=== PATIENT | male | born 1935 | race Caucasian/White ===

== ENCOUNTER 2017-07-15 04:14 | Inpatient (IN) | payer MEDICARE, OTHER ==
[~2017-07-15] VITALS: Ht 172.7 cm; Wt 106.7 kg
[2017-07-15] MEDS ORDERED: ASPIRIN 325 MG TABLET ONE (04:35)
[2017-07-15] MEDS ORDERED: FUROSEMIDE 10 MG/ML 4ML VIAL ONE (04:35)
[2017-07-15] MEDS ORDERED: METHYLPREDNISOLONE SOD SUCC 125MG/2ML VIAL ONE (04:36)
[2017-07-15 04:37] LABS: BASOPHILS % (AUTO) 0.4 % (0.0-5.0); EOSINOPHILS % (AUTO) 1.5 % (0.0-8.0); HEMATOCRIT 31.7 % (42-54); LYMPHOCYTES % (AUTO) 12.3 % (21.0-51.0); MEAN CORPUSCULAR HGB CONC 33.4 g/dL (32.0-36.0); MEAN CORPUSCULAR VOLUME 90.1 fL (79-99); MONOCYTES % (AUTO) 8.7 % (3.0-13.0); NEUTROPHILS % (AUTO) 77.1 % (40.0-77.0); PLATELET COUNT (AUTO) 156 K/uL (130-400); RED BLOOD CELL COUNT(AUTO) 3.52 MIL/uL (4.50-6.20); RED CELL DISTRIBUTION WIDTH 14.5 % (11.0-15.5); WHITE BLOOD COUNT (AUTO) 8.6 K/uL (4.8-10.8)
[2017-07-15] MEDS ORDERED: IPRATROPIUM/ALBUTEROL SULFATE 3 ML SOLUTION IH ONE (04:39)
[2017-07-15 04:42] LABS: INR 1.14 (0.85-1.15); PROTHROMBIN TIME 11.9 SEC (9.6-11.6)
[2017-07-15 05:32] LABS: APPEARANCE,URINE Clear (CLEAR); BILIRUBIN,URINE Negative (NEGATIVE); COLOR,URINE Yellow (YELLOW); GLUCOSE, URINE (UA) Negative (NEGATIVE); KETONES,URINE Negative (NEGATIVE); LEUKOCYTE ESTERASE ,URINE Negative (NEGATIVE); NITRATE,URINE Negative (NEGATIVE); OCCULT BLOOD,URINE Negative (NEGATIVE); PH,URINE 5.5 (5.0-8.0); PROTEIN,URINE Negative (NEGATIVE); UROBILINOGEN,URINE 0.2 mg/dL (0.2-1.0)
[2017-07-15] MEDS ORDERED: POTASSIUM CHLORIDE 20MEQ/100ML 100 ML IV PRN (07:00)
[2017-07-15] MEDS ORDERED: POTASSIUM CHLORIDE 20 MEQ ERTAB PO PRN (07:00)
[2017-07-15] MEDS ORDERED: NITROGLYCERIN 0.4 MG SL TAB SL PRN (07:00)
[2017-07-15] MEDS ORDERED: HYDRALAZINE HCL 20 MG/ML VIAL IV PRN (07:00)
[2017-07-15] MEDS ORDERED: LEVOFLOXACIN 500 MG/D5W 100 ML 100 ML IV SCH ×2 (07:00→09:00)
[2017-07-15] MEDS ORDERED: LIDOCAINE HCL-MPF 1% 2ML VIAL IVP PRN (07:00)
[2017-07-15] MEDS ORDERED: ONDANSETRON HCL 4 MG/2 ML VIAL IV PRN (07:00)
[2017-07-15] MEDS ORDERED: ACETAMINOPHEN 325 MG TAB PO PRN ×2 (07:00)
[2017-07-15] MEDS ORDERED: HYDR-4154 PO (07:40)
[2017-07-15] MEDS ORDERED: TERA5CAP4 PO (07:40)
[2017-07-15] MEDS ORDERED: METO50TA18 PO (07:40)
[2017-07-15] MEDS ORDERED: FENO48TA4 PO (07:40)
[2017-07-15] MEDS ORDERED: SERT25TA5 PO (07:40)
[2017-07-15] MEDS ORDERED: FAMO20TA8 PO (07:40)
[2017-07-15] MEDS ORDERED: LEVE500T8 PO (07:40)
[2017-07-15] MEDS ORDERED: TORS5TAB12 PO (07:40)
[2017-07-15] MEDS ORDERED: MINO2.5T3 PO (07:40)
[2017-07-15] MEDS ORDERED: ATOR10 PO (07:40)
[2017-07-15] MEDS ORDERED: LOSA50TA37 PO (07:40)
[2017-07-15 07:42] VITALS: BP 160/82
[2017-07-15 08:04] LABS: ALBUMIN 3.3 g/dL (3.5-5.0); BILIRUBIN,TOTAL 0.3 mg/dL (0.2-1.0); CREATININE 1.3 mg/dL (0.5-1.5); POTASSIUM 3.5 mmol/L (3.5-5.1); TOTAL PROTEIN, SERUM 6.9 g/dL (6.0-8.3)
[2017-07-15] MEDS ORDERED: HYDRALAZINE HCL 20 MG/ML VIAL ONE (08:04)
[2017-07-15 09:00] VITALS: BP 159/90
[2017-07-15] MEDS ORDERED: FUROSEMIDE 10 MG/ML 2ML VIAL IV SCH (09:00)
[2017-07-15] MEDS ORDERED: IOPAMIDOL-370 75 ML VIAL IV ONE (09:05)
[2017-07-15] MEDS ORDERED: IOPAMIDOL-370 100 ML VIAL IV ONE (09:07)
[2017-07-15] MEDS: FAMOTIDINE 20MG TAB 20 MG TAB PO SCH ×2 (10:30→21:29)
[2017-07-15] MEDS: ENOXAPARIN SODIUM 40 MG/0.4 ML SYRINGE SQ SCH (10:31)
[2017-07-15] MEDS: IPRATROPIUM/ALBUTEROL SULFATE 3 ML SOLUTION IH SCH ×3 (10:32→23:41)
[2017-07-15 11:00] VITALS: BP 157/81
[2017-07-15 11:13] LABS: CREATINE KINASE MB 0.6 ng/mL (0.5-3.6); CREATINE KINASE, TOTAL 69 U/L (21-232); MYOGLOBIN 61 ng/mL (10-92); TROPONIN I < 0.04 ng/mL (0.00-0.06)
[2017-07-15] MEDS: POTASSIUM CHLORIDE 10% ELIXIR 20 MEQ/15 ML UDCUP PO PRN (12:33)
[2017-07-15] MEDS: HYDRALAZINE HCL 25 MG TABLET PO SCH ×2 (15:11→21:30)
[2017-07-15] MEDS ORDERED: LOSARTAN 50 MG TABLET PO SCH (15:15)
[2017-07-15 16:00] VITALS: BP 182/82
[2017-07-15] MEDS: MINOXIDIL 2.5 MG TAB PO SCH (17:10)
[2017-07-15] MEDS: LEVETIRACETAM 500 MG TABLET PO SCH (17:10)
[2017-07-15 17:11] LABS: CREATINE KINASE MB 1.1 ng/mL (0.5-3.6); CREATINE KINASE, TOTAL 58 U/L (21-232); MYOGLOBIN 50 ng/mL (10-92); TROPONIN I < 0.04 ng/mL (0.00-0.06)
[2017-07-15] MEDS: FUROSEMIDE 10 MG/ML 2ML VIAL IV SCH ×2 (17:14→21:00)
[2017-07-15 19:33] VITALS: BP 137/86
[2017-07-15] MEDS: ATORVASTATIN CALCIUM 20 MG TABLET PO SCH (21:29)
[2017-07-15] MEDS: SERTRALINE HCL 50 MG TABLET PO SCH (21:29)
[2017-07-15] MEDS: METOPROLOL TARTRATE 50 MG TAB PO SCH (21:30)
[2017-07-15 23:50] VITALS: BP 142/72
[2017-07-16] VITALS (8 sets, daily range): BP systolic 105–183; BP diastolic 53–80
[2017-07-16 03:50] LABS: HEMATOCRIT 32.7 % (42-54); MEAN CORPUSCULAR HEMOGLOBIN 29.4 pg (27.0-33.0); MEAN CORPUSCULAR HGB CONC 32.7 g/dL (32.0-36.0); MEAN CORPUSCULAR VOLUME 89.9 fL (79-99); PLATELET COUNT (AUTO) 170 K/uL (130-400); RED BLOOD CELL COUNT(AUTO) 3.64 MIL/uL (4.50-6.20); WHITE BLOOD COUNT (AUTO) 9.9 K/uL (4.8-10.8)
[2017-07-16 04:02] LABS: CREATININE 1.4 mg/dL (0.5-1.5); POTASSIUM 3.6 mmol/L (3.5-5.1)
[2017-07-16] MEDS: POTASSIUM CHLORIDE 10% ELIXIR 20 MEQ/15 ML UDCUP PO PRN (06:52)
[2017-07-16] MEDS: IPRATROPIUM/ALBUTEROL SULFATE 3 ML SOLUTION IH SCH ×4 (07:05→23:57)
[2017-07-16] MEDS: LEVETIRACETAM 500 MG TABLET PO SCH ×2 (08:06→16:44)
[2017-07-16] MEDS: FAMOTIDINE 20MG TAB 20 MG TAB PO SCH ×2 (08:06→20:59)
[2017-07-16] MEDS: METOPROLOL TARTRATE 50 MG TAB PO SCH ×2 (08:06→20:58)
[2017-07-16] MEDS: TERAZOSIN HCL 5 MG CAPSULE PO SCH (08:06)
[2017-07-16] MEDS: LOSARTAN 50 MG TABLET PO SCH (08:06)
[2017-07-16] MEDS: MINOXIDIL 2.5 MG TAB PO SCH ×2 (08:06→16:44)
[2017-07-16] MEDS: FUROSEMIDE 10 MG/ML 2ML VIAL IV SCH ×2 (08:07→21:00)
[2017-07-16] MEDS: ENOXAPARIN SODIUM 40 MG/0.4 ML SYRINGE SQ SCH (08:07)
[2017-07-16] MEDS: HYDRALAZINE HCL 25 MG TABLET PO SCH ×3 (08:13→20:58)
[2017-07-16] MEDS ORDERED: LEVOFLOXACIN 500 MG/D5W 100 ML 100 ML IV SCH (09:00)
[2017-07-16] MEDS: FENOFIBRATE NANOCRYSTALLIZED 48 MG TAB PO SCH (09:06)
[2017-07-16] MEDS ORDERED: METHYLPREDNISOLONE SOD SUCC 40MG/ML 1ML IVP SCH (09:15)
[2017-07-16] MEDS ORDERED: AZITHROMYCIN 500MG+NS 250ML 250 ML IV SCH (09:15)
[2017-07-16] MEDS: AZITHROMYCIN 500MG+NS 250ML 250 ML IV SCH (10:01)
[2017-07-16] MEDS ORDERED: ACETYLCYSTEINE 20% 200MG/ML 4ML VIAL ONE (11:05)
[2017-07-16] MEDS: METHYLPREDNISOLONE SOD SUCC 40MG/ML 1ML IVP SCH ×2 (14:22→21:51)
[2017-07-16] MEDS: ACETYLCYSTEINE 20% 200MG/ML 4ML VIAL IH SCH ×2 (18:48→23:58)
[2017-07-16] MEDS: ATORVASTATIN CALCIUM 20 MG TABLET PO SCH (20:58)
[2017-07-16] MEDS: SERTRALINE HCL 50 MG TABLET PO SCH (20:59)
[2017-07-17 03:37] VITALS: BP 157/84
[2017-07-17 04:05] LABS: CREATININE 1.1 mg/dL (0.5-1.5); POTASSIUM 4.2 mmol/L (3.5-5.1)
[2017-07-17] MEDS: METHYLPREDNISOLONE SOD SUCC 40MG/ML 1ML IVP SCH ×2 (06:14→21:09)
[2017-07-17] MEDS: IPRATROPIUM/ALBUTEROL SULFATE 3 ML SOLUTION IH SCH ×4 (06:15→23:37)
[2017-07-17] MEDS ORDERED: FUROSEMIDE 10 MG/ML 2ML VIAL IV SCH (07:14)
[2017-07-17] MEDS ORDERED: PHARMACY COMMUNICATION MISC SCH (07:15)
[2017-07-17 07:51] VITALS: BP 158/82
[2017-07-17] MEDS: LOSARTAN 50 MG TABLET PO SCH (08:07)
[2017-07-17] MEDS: MINOXIDIL 2.5 MG TAB PO SCH ×2 (08:07→17:02)
[2017-07-17] MEDS: TERAZOSIN HCL 5 MG CAPSULE PO SCH (08:07)
[2017-07-17] MEDS: FAMOTIDINE 20MG TAB 20 MG TAB PO SCH ×2 (08:07→21:08)
[2017-07-17] MEDS: LEVETIRACETAM 500 MG TABLET PO SCH ×2 (08:07→17:02)
[2017-07-17] MEDS: METOPROLOL TARTRATE 50 MG TAB PO SCH ×2 (08:07→21:09)
[2017-07-17] MEDS: ENOXAPARIN SODIUM 40 MG/0.4 ML SYRINGE SQ SCH (08:08)
[2017-07-17] MEDS: AZITHROMYCIN 500MG+NS 250ML 250 ML IV SCH (08:08)
[2017-07-17] MEDS: HYDRALAZINE HCL 25 MG TABLET PO SCH ×3 (08:12→21:08)
[2017-07-17] MEDS: FUROSEMIDE 10 MG/ML 2ML VIAL IV SCH ×2 (08:14→17:04)
[2017-07-17] MEDS: FENOFIBRATE NANOCRYSTALLIZED 48 MG TAB PO SCH (08:14)
[2017-07-17] MEDS: ACETYLCYSTEINE 20% 200MG/ML 4ML VIAL IH SCH (09:00)
[2017-07-17 11:31] VITALS: BP 122/64
[2017-07-17 16:00] VITALS: BP 120/53
[2017-07-17 19:38] VITALS: BP 148/71
[2017-07-17] MEDS: ATORVASTATIN CALCIUM 20 MG TABLET PO SCH (21:09)
[2017-07-17] MEDS: SERTRALINE HCL 50 MG TABLET PO SCH (21:09)
[2017-07-17 23:30] VITALS: BP 167/80
[2017-07-18 04:01] VITALS: BP 133/72
[2017-07-18] MEDS: FUROSEMIDE 10 MG/ML 2ML VIAL IV SCH (05:03)
[2017-07-18 05:07] LABS: CREATININE 1.3 mg/dL (0.5-1.5); POTASSIUM 3.9 mmol/L (3.5-5.1)
[2017-07-18] MEDS: IPRATROPIUM/ALBUTEROL SULFATE 3 ML SOLUTION IH SCH ×3 (05:56→17:30)
[2017-07-18 07:00] VITALS: BP 157/87
[2017-07-18] MEDS: AZITHROMYCIN 500MG+NS 250ML 250 ML IV SCH (07:49)
[2017-07-18] MEDS: METOPROLOL TARTRATE 50 MG TAB PO SCH (07:50)
[2017-07-18] MEDS: ENOXAPARIN SODIUM 40 MG/0.4 ML SYRINGE SQ SCH (07:50)
[2017-07-18] MEDS: METHYLPREDNISOLONE SOD SUCC 40MG/ML 1ML IVP SCH (07:50)
[2017-07-18] MEDS: HYDRALAZINE HCL 25 MG TABLET PO SCH ×2 (07:50→13:14)
[2017-07-18] MEDS: MINOXIDIL 2.5 MG TAB PO SCH ×2 (07:50→17:29)
[2017-07-18] MEDS: LEVETIRACETAM 500 MG TABLET PO SCH ×2 (07:50→17:29)
[2017-07-18] MEDS: TERAZOSIN HCL 5 MG CAPSULE PO SCH (07:50)
[2017-07-18] MEDS: FAMOTIDINE 20MG TAB 20 MG TAB PO SCH (07:50)
[2017-07-18] MEDS: LOSARTAN 50 MG TABLET PO SCH (07:50)
[2017-07-18] MEDS: FENOFIBRATE NANOCRYSTALLIZED 48 MG TAB PO SCH (08:52)
[2017-07-18 11:00] VITALS: BP 143/64
[2017-07-18 16:00] VITALS: BP 148/65
[2017-07-18] MEDS ORDERED: METHYLPREDNISOLONE SOD SUCC 40MG/ML 1ML IVP SCH (21:00)
== END 2017-07-18 18:45 | disposition home or self-care (01) | DRG 202 ==
LOC: EDH 04:14 → OBSVTOIN 06:00 → EDHIP 06:00 → 2AH 07:50
PROVIDERS: ADMIT Internal Medicine; ATTEND Internal Medicine
DX: J40 Bronchitis, not specified as acute or chronic (principal); I50.33 Acute on chronic diastolic (congestive) heart failure; I11.0 Hypertensive heart disease with heart failure; G40.909 Epilepsy, unspecified, not intractable, without status epilepticus; E66.9 Obesity, unspecified; F32.9 Major depressive disorder, single episode, unspecified; R09.02 Hypoxemia; Z95.0 Presence of cardiac pacemaker; Z68.35 Body mass index [BMI] 35.0-35.9, adult
CPT/HCPCS: 36415; 71045; 71275; 80048; 80053; 81003; 82550; 82553; 83874; 83880; 84484; 85025; 85027; 85378; 85610; 85730; 92610; 93005; 93306; 93970; 94640; 94664; 94760; 97039; J0360; J0456; J1650; J1940; J1956; J2920; J2930; J7608; Q9967